=== PATIENT | female | born 1950 | race Caucasian/White ===

== ENCOUNTER 2016-07-04 12:08 | Day surgery (SDC) | payer MEDICARE ==
[2016-07-01 13:37] LABS: HEMATOCRIT 38.8 % (36.0-48.0); HEMOGLOBIN 13.3 g/dL (12.0-16.0)
[2016-07-01 13:47] LABS: CALCIUM, SERUM 9.3 MG/DL (8.5-10.4); CHLORIDE, SERUM 109 MMOL/L (96-112); CREATININE 0.67 MG/DL (0.55-1.02); GFR AFRICAN AMERICAN 106 ML/MIN (>=60); GFR NON AFRICAN AMERICAN 92 ML/MIN (>=60); GLUCOSE, SERUM 94 MG/DL (60-99); SODIUM, SERUM 143 MMOL/L (135-148)
[2016-07-01 13:48] LABS: BUN (BLOOD UREA NITROGEN) 17 MG/DL (6-23); CO2 (CARBON DIOXIDE) 31 MMOL/L (24-34)
--- NOTE | ~2016-07-04 | OP ---
Record Of Operation [facility] [address] [place]. [address] NAME: NEELAM LOGAN : 48 STATUS : [facility]#: [id number] AGE: 65 ADM/REG DATE : 07/04/16 MR#: [id number] REPORT SERV DATE: 07/04/16 DICTATED BY: FORREST PAK DATE: 07/04/16 REPORT STATUS : Draft TRANSCRIBED BY: SYLVIA DATE: 07/04/16 DATE OF PROCEDURE: 07/04/2016 PREOPERATIVE DIAGNOSIS: Chronic serous otitis media in the right ear with conductive hearing loss. POSTOPERATIVE DIAGNOSIS: Chronic serous otitis media in the right ear with conductive hearing loss. PROCEDURE: Right myringotomy and tube placement. SURGEON: Forrest Pak M.D. ANESTHESIA: General via LMA. ESTIMATED BLOOD LOSS: Less than 1 mL. INTRAOPERATIVE FLUIDS: 400 mL crystalloid. FINDINGS: Narrow ear canal on the right side. A moderate amount of cerumen lying the ear canal. A small amount of serous fluid identified within the right middle ear space. A good T-tube placed. OPERATIVE PROCEDURE: The patient was identified in the holding room and transported to the operating room. In the operating room, the patient was placed on the operating room table in supine position. Following induction of anesthesia, an LMA was placed for control of the patient's airway. The microscope was positioned for examination of the right ear. The above findings were noted. The cerumen was debrided from the ear canal on the right side. A myringotomy was performed in the anteroinferior portion of the right tympanic membrane. A small amount of serous fluid was evacuated from the right middle ear space. A good T-tube was placed through the myringotomy. Floxin otic drops were applied to the ear and cotton balls placed in the external auditory canal. The patient was subsequently awakened from anesthesia and transported to the recovery room in good condition. The patient tolerated the procedure well. There were no apparent complications. There were no specimens. KEVON/SYLVIA Forrest Pak M.D. / [id number] CC: Forrest Pak M.D. Record Of Operation [address] [place]. [address] NAME: NEELAM LOGAN : [birth year] STATUS : [facility] PAT#: [id number] AGE: 65 ADM/REG DATE : 07/04/16 MR#: [id number] REPORT SERV DATE: 07/04/16 DICTATED BY: FORREST PAK DATE: 07/04/16 REPORT STATUS : Draft TRANSCRIBED BY: MODL DATE: 07/04/16 Bobby Weiner M.D.
[~2016-07-04 12:08] MED LIST: ACCUPRIL40 MG PO; ALLEGRA180 PO; CELEBREX1 PO; CLARIT10 PO; METHOC750B PO; NEUR300 PO; NORV10 PO; ULTRAM50 PO; VITAMIN D2000 UNIT PO
== END 2016-07-04 17:16 | disposition home or self-care (01) ==
LOC: SDC 12:08
PROVIDERS: Otolaryngology
PROC: 099500Z Drainage of Right Middle Ear with Drainage Device, Open Approach (ICD-10-PCS; principal; 2016-07-04 13:15)
DX: H65.21 Chronic serous otitis media, right ear (principal); Z79.899 Other long term (current) drug therapy; Z88.8 Allergy status to other drugs, medicaments and biological substances; I10 Essential (primary) hypertension; Z90.49 Acquired absence of other specified parts of digestive tract; Z90.710 Acquired absence of both cervix and uterus; Z98.890 Other specified postprocedural states; H69.83 Other specified disorders of Eustachian tube, bilateral; H90.11 Conductive hearing loss, unilateral, right ear, with unrestricted hearing on the contralateral side; J34.2 Deviated nasal septum; H69.81 Other specified disorders of Eustachian tube, right ear
CPT/HCPCS: 80048; 85014; 85018; 93005; A9270-GY; J2250; J2405; J3010